=== PATIENT | male | born 1975 | race Caucasian/White ===

== ENCOUNTER 2024-05-06 11:50 | Day surgery (SDC) | payer BC, SELFPAY ==
[2024-05-05 15:57] VITALS: BMI 34.2
[2024-05-06] VITALS (11 sets, daily range): BP systolic 118–140; BP diastolic 73–91; PULSE 60–82; RESP 12–20; TEMP 36.5–36.9; O2SAT 94–97; BMI 33.9
[2024-05-06] MEDS: fentaNYL CIT INJ 50 mCg/ML AMP 2ML (ASD USE ONLY) IV (13:21)
[2024-05-06] MEDS: DiphenhydrAMINE INJ 50 MG/ML VIAL 25 MG IV (13:26)
[2024-05-06] MEDS: MIDAZOLAM INJ 1 MG/ML VIAL 2 ML (ASD USE ONLY) 2 MG IV (13:30)
== END 2024-05-06 14:19 | disposition home or self-care (01) ==
PROVIDERS: PCP Nurse Practitioner; Referring Provider Surgery; Visit Provider Surgery
PROC: 0DBE8ZX Excision of Large Intestine, Via Natural or Artificial Opening Endoscopic, Diagnostic (ICD-10-PCS; CPT 45380; principal; 2024-05-06 14:15)
DX: Z12.11 Encounter for screening for malignant neoplasm of colon (principal); Z98.84 Bariatric surgery status
CPT/HCPCS: 45378; A4217; J1200; J2250; J3010